=== PATIENT | female | born 1960 | race Caucasian/White ===

== ENCOUNTER → 2016-09-29 | Outpatient (CLI) | payer BC ==
[2014-11-27 23:52] VITALS: BP 132/84
[2016-09-29 11:20] LABS: ALANINE AMINOTRANSFERASE 38 Units/L (12-78); ALBUMIN 3.8 g/dL (3.4-5.0); ALKALINE PHOSPHATASE 67 Units/L (46-116); ASPARTATE AMINO TRANSFERASE 31 Units/L (15-37); BLOOD UREA NITROGEN 10 mg/dL (7-18); CARBON DIOXIDE 29.2 mmol/L (21-32); CHLORIDE 104 mmol/L (98-107); COR NA(FOR HYPERGLY) 147 mmol/L (136-145); CREATININE 0.66 mg/dL (0.55-1.02); GLUCOSE 166 mg/dL (65-99); SODIUM 145 mmol/L (136-145); TOTAL PROTEIN 6.8 g/dL (6.4-8.2); eGFR BLACK RACES > 60 (>60); eGFR NON BLACK RACES > 60 (>60)
[2016-09-29 11:25] LABS: BASOPHILS # (AUTO) 0.1 X10^3/uL (0.0-0.1); BASOPHILS % (AUTO) 1.4 % (0.2-1.0); EOSINOPHILS # (AUTO) 0.2 x10^3/uL (0.0-0.2); EOSINOPHILS % (AUTO) 3.5 % (0.9-2.9); HEMATOCRIT 40.7 % (36.0-47.0); HEMOGLOBIN 13.6 g/dL (12.0-16.0); LYMPHOCYTES # (AUTO) 3.9 X10^3/uL (1.3-2.9); LYMPHOCYTES % (AUTO) 58.1 % (21.0-51.0); MEAN CORPUSCULAR HEMOGLOBIN 28.8 pg (27.0-34.0); MEAN CORPUSCULAR HGB CONC 33.5 g/dL (33.0-35.0); MEAN PLATELET VOLUME 7.3 fL (7.4-11.0); MONOCYTES # (AUTO) 0.7 x10^3/uL (0.3-0.8); MONOCYTES % (AUTO) 10.1 % (0.0-13.0); NEUTROPHILS # (AUTO) 1.8 x10^3/uL (2.2-4.8); NEUTROPHILS % (AUTO) 26.9 % (42.0-75.0); PLATELET COUNT 351 X10^3/uL (150.0-450.0); RED BLOOD COUNT 4.73 X10^6/uL (3.5-5.4); RED CELL DISTRIBUTION WIDTH 13.9 % (11.6-16.5); WHITE BLOOD COUNT 6.7 X10^3/uL (3.6-10.0)
== END ==
LOC: LAB 10:51
PROVIDERS: ATTEND Internal Medicine Rheumatology
DX: D86.3 Sarcoidosis of skin (principal); Z79.899 Other long term (current) drug therapy
CPT/HCPCS: 36415; 80053; 85025; 86140

== ENCOUNTER → 2017-04-10 | Outpatient (CLI) | payer BC ==
[2014-11-27 23:52] VITALS: BP 132/84
[2017-04-10 14:16] LABS: BASOPHILS # (AUTO) 0.1 X10^3/uL (0.0-0.1); EOSINOPHILS # (AUTO) 0.3 x10^3/uL (0.0-0.2); EOSINOPHILS % (AUTO) 3.5 % (0.9-2.9); HEMATOCRIT 37.9 % (36.0-47.0); HEMOGLOBIN 13.1 g/dL (12.0-16.0); LYMPHOCYTES # (AUTO) 5.2 X10^3/uL (1.3-2.9); LYMPHOCYTES % (AUTO) 59.5 % (21.0-51.0); MEAN CORPUSCULAR HEMOGLOBIN 31.1 pg (27.0-34.0); MEAN CORPUSCULAR HGB CONC 34.5 g/dL (33.0-35.0); MEAN CORPUSCULAR VOLUME 90.2 fL (80.0-100.0); MONOCYTES # (AUTO) 0.5 x10^3/uL (0.3-0.8); MONOCYTES % (AUTO) 5.9 % (0.0-13.0); NEUTROPHILS # (AUTO) 2.6 x10^3/uL (2.2-4.8); NEUTROPHILS % (AUTO) 30.1 % (42.0-75.0); PLATELET COUNT 425 X10^3/uL (150.0-450.0); RED CELL DISTRIBUTION WIDTH 13.7 % (11.6-16.5); WHITE BLOOD COUNT 8.7 X10^3/uL (3.6-10.0)
[2017-04-10 14:24] LABS: ALANINE AMINOTRANSFERASE 28 Units/L (12-78); ALBUMIN 3.9 g/dL (3.4-5.0); ALKALINE PHOSPHATASE 48 Units/L (46-116); ASPARTATE AMINO TRANSFERASE 23 Units/L (15-37); BLOOD UREA NITROGEN 10 mg/dL (7-18); CALCIUM 9.2 mg/dL (8.5-10.1); CHLORIDE 102 mmol/L (98-107); COR NA(FOR HYPERGLY) 139 mmol/L (136-145); CREATININE 0.83 mg/dL (0.55-1.02); SODIUM 138 mmol/L (136-145); TOTAL PROTEIN 6.9 g/dL (6.4-8.2); eGFR BLACK RACES > 60 (>60); eGFR NON BLACK RACES > 60 (>60)
== END ==
LOC: LAB 13:49
PROVIDERS: ATTEND Internal Medicine Rheumatology
DX: G25.81 Restless legs syndrome (principal); I87.2 Venous insufficiency (chronic) (peripheral); G90.4 Autonomic dysreflexia; Q79.6 Ehlers-Danlos syndromes; K58.0 Irritable bowel syndrome with diarrhea; D86.89 Sarcoidosis of other sites; R06.02 Shortness of breath; M77.11 Lateral epicondylitis, right elbow
CPT/HCPCS: 36415; 80053; 85025; 86140